=== PATIENT | female | born 1975 | race Two or more races ===

== ENCOUNTER 2021-05-07 07:23 | Day surgery (SDC) | payer OTHER ==
[~2021-05-07 07:23] MED LIST: CLARINEX-D 121 EACH PO; SINGULAIR 10MG10 MG PO
== END 2021-05-07 18:20 | disposition home or self-care (01) ==
LOC: CIR.AMB 07:23 → MAMO-SONO 09:45 → CIR.AMB 09:45 → EDSTATUS 09:45 → CIR.AMB 18:20
PROVIDERS: ATTEND Surgery
DX: D24.2 Benign neoplasm of left breast (principal); Z20.822 Contact with and (suspected) exposure to COVID-19

== ENCOUNTER 2025-05-30 06:00 | Day surgery (SDC) | payer OTHER ==
[2025-05-27 12:17] VITALS: BP 112/78
[~2025-05-30] VITALS: Ht 161.3 cm; Wt 49.9 kg
[~2025-05-30 06:00] MED LIST changes: +ALLEGRA ALLERG180 MG PO; +AZELASTINE137 MCG/0. NASAL; +PROBIOTIC250 MG PO
[2025-05-30] MEDS ORDERED: CEFAZOLIN SODIUM 1,000 MG VIAL ONE (11:14)
[2025-05-30] MEDS ORDERED: SUGAMMADEX SODIUM 200 MG/2 ML VIAL IV ONE (15:48)
[2025-05-30 17:21] LABS: COL EPI 138 SECONDS (82-175)
[2025-05-30] MEDS ORDERED: MORPHINE SULFATE 4 MG/ML VIAL IV ONE (18:35)
== END 2025-05-30 20:20 | disposition home or self-care (01) ==
LOC: CIR.AMB 06:00
PROVIDERS: ATTEND Surgery
DX: D48.61 Neoplasm of uncertain behavior of right breast (principal); N60.91 Unspecified benign mammary dysplasia of right breast; N60.21 Fibroadenosis of right breast; N60.81 Other benign mammary dysplasias of right breast; R92.1 Mammographic calcification found on diagnostic imaging of breast

== ENCOUNTER → 2025-06-27 13:08 | Outpatient (CLI) | payer OTHER | END | disposition home or self-care (01) | LOC: LAB 13:08 | PROVIDERS: ATTEND Surgery | DX: N61.1 Abscess of the breast and nipple (principal) ==